=== PATIENT | female | born 1945 | race Caucasian/White ===

== ENCOUNTER 2022-06-29 10:23 | Outpatient (CLI) | payer MEDICARE, OTHER ==
[2022-06-29] MEDS ORDERED: Magnevist 469MG/ML 20 ML VIAL ONE (14:08)
== END 2022-06-29 10:24 | disposition home or self-care (01) ==
LOC: MRI 10:23
PROVIDERS: ATTEND Internal Medicine Gastroenterology
DX: R89.0 Abnormal level of enzymes in specimens from other organs, systems and tissues (principal); R74.8 Abnormal levels of other serum enzymes; R63.4 Abnormal weight loss; K44.9 Diaphragmatic hernia without obstruction or gangrene; K82.8 Other specified diseases of gallbladder
CPT/HCPCS: 74183; 82565; A9579